=== PATIENT | female | born 1970 ===

== ENCOUNTER 2023-11-25 07:45 | Inpatient (IN) | payer OTHER ==
[~2023-11-25] VITALS: Ht 160 cm; Wt 78.5 kg
[2023-11-25] MEDS ORDERED: IRBESARTAN150 MG PO (09:41)
[2023-11-25] MEDS ORDERED: CARVEDILOL12.5 MG (09:41)
[2023-11-25] MEDS ORDERED: HYDROCHLOROTHIA25 MG PO (09:42)
[2023-11-25] MEDS ORDERED: METFORMIN HCL750 MG PO (09:42)
[2023-11-25] MEDS ORDERED: CRESTOR40 MG PO (09:43)
[2023-11-25 09:55] LABS: HEMATOCRIT 38.9 % (36.0-45.00); HEMOGLOBIN 13.1 g/dL (12.0-15.00); MEAN CELL VOLUME 92.1 fL (80.00-100.00); MEAN CORPUSCULAR HGB CONC 33.6 g/dl (32.0-36.0); PLATELET COUNT 287 K/uL (150-450); RED BLOOD COUNT 4.22 M/uL (4.00-6.00); RED CELL DISTRIBUTION WIDTH 14.8 % (11.5-14.5)
[2023-11-25 09:59] LABS: URINE APPEARANCE Clear; URINE BILIRRUBIN Negative (NEGATIVE); URINE BLOOD Negative; URINE COLOR Yellow; URINE GLUCOSE Negative (NEGATIVE); URINE LEUKOCYTE Trace; URINE NITRATE Negative; URINE PROTEIN Negative (NEGATIVE); URINE UROBILINOGEN 0.2 E.U./dl
[2023-11-25 10:01] LABS: URINE BACTERIA 188.8 uL (0.0-1933); URINE EPITHELIAL CELLS 11.2 uL (0.0-38.8); URINE RBC 9.9 uL (0.0-20.8); URINE WBC 11.2 uL (0.0-23.2)
[2023-11-25 10:22] LABS: INR 0.97; PROTHROMBIN TIME 10.2 SECONDS (9.0-11.5)
[2023-11-25 10:28] LABS: ALBUMIN 3.8 gm/dL (3.4-5.0); BILIRUBIN TOTAL 0.43 mg/dL (0.3-1.2); CALCIUM 9.4 mg/dL (8.5-10.1); CREATININE SERUM 0.67 mg/dL (0.55-1.02); GFR 91.72; GLOBULINA 3.5 G/DL (2.4-3.5); POTASSIUM 3.73 mEq/L (3.5-5.1); TOTAL PROTEIN 7.3 gm/dL (6.4-8.2)
[2023-12-01] MEDS ORDERED: CEFOXITIN SODIUM 2,000 MG VIAL IV ONE ×3 (07:34→09:45)
[2023-12-01] MEDS ORDERED: METRONIDAZOLE/SODIUM CHLORIDE 500 MG/100 ML PIGGYBACK IV ONE ×3 (07:34→09:45)
[2023-12-01] MEDS ORDERED: POVIDONE-IODINE 118 ML BOTT TOP ONE (08:43)
[2023-12-01] MEDS ORDERED: ROSUVASTATIN CA20 MG (09:19)
[2023-12-01] MEDS ORDERED: FAMOTIDINE/PF 20 MG/2 ML VIAL IV SCH (13:39)
[2023-12-01] MEDS ORDERED: PROMETHAZINE HCL 25 MG/ML AMPUL IM PRN (13:45)
[2023-12-01] MEDS ORDERED: RINGERS SOLUTION,LACTATED 1,000 ML IV SCH (13:45)
[2023-12-01] MEDS ORDERED: KETOROLAC TROMETHAMINE 30 MG VIAL IU PRN (13:45)
[2023-12-01] MEDS ORDERED: MEPERIDINE HCL/PF 50 MG/ML VIAL IM PRN (13:45)
[2023-12-01] MEDS ORDERED: FAMOTIDINE/PF 20 MG/2 ML VIAL ONE (14:56)
[2023-12-01] MEDS ORDERED: KETOROLAC TROMETHAMINE 30 MG VIAL ONE (16:10)
[2023-12-01] MEDS ORDERED: SIMETHICONE 125 MG CAPSULE PO SCH (18:00)
[2023-12-01 19:19] LABS: HEMATOCRIT 35.6 % (36.0-45.00); HEMOGLOBIN 12.1 g/dL (12.0-15.00); MEAN CELL VOLUME 92.9 fL (80.00-100.00); MEAN CORPUSCULAR HEMOGLOBIN 31.7 pg (27.00-32.0); MEAN CORPUSCULAR HGB CONC 34.1 g/dl (32.0-36.0); PLATELET COUNT 235 K/uL (150-450); RED BLOOD COUNT 3.84 M/uL (4.00-6.00); RED CELL DISTRIBUTION WIDTH 14.9 % (11.5-14.5)
[2023-12-02] MEDS ORDERED: ACETAMINOPHEN WITH CODEINE 1 UDTAB TABLET PO PRN (09:00)
[2023-12-02] MEDS ORDERED: IBUprofen 600 MG TABLET PO PRN (09:00)
[2023-12-02] MEDS ORDERED: DOCUSATE SODIUM 100MG CAP PO SCH (09:00)
[2023-12-02] MEDS ORDERED: FAMOtidine 20 MG TABLET PO SCH (09:00)
[2023-12-03] MEDS ORDERED: IBUPROFEN600 MG PO (06:22)
[2023-12-03] MEDS ORDERED: COLACE100 MG PO (06:22)
[2023-12-03] MEDS ORDERED: ACETAMINOPHEN-1 EAC2 PO (06:22)
== END 2023-12-03 09:18 | disposition home or self-care (01) | DRG 743 ==
LOC: OB/GYN 12-01 06:32 → O/R 12-01 06:32 → OB/GYN 12-01 07:00
PROVIDERS: ADMIT Obstetrics & Gynecology; ATTEND Obstetrics & Gynecology
PROC: 0JQC0ZZ Repair Pelvic Region Subcutaneous Tissue and Fascia, Open Approach (ICD-10-PCS; 2023-12-01)
PROC: 0USG0ZZ Reposition Vagina, Open Approach (ICD-10-PCS; 2023-12-01)
PROC: 0JQC0ZZ Repair Pelvic Region Subcutaneous Tissue and Fascia, Open Approach (ICD-10-PCS; 2023-12-01)
PROC: 0JQC0ZZ Repair Pelvic Region Subcutaneous Tissue and Fascia, Open Approach (ICD-10-PCS; 2023-12-01)
PROC: 0TJB8ZZ Inspection of Bladder, Via Natural or Artificial Opening Endoscopic (ICD-10-PCS; 2023-12-01)
PROC: 0UT97ZZ Resection of Uterus, Via Natural or Artificial Opening (ICD-10-PCS; principal; 2023-12-01 07:00)
DX: D25.1 Intramural leiomyoma of uterus (principal); D25.2 Subserosal leiomyoma of uterus; N80.03 Adenomyosis of the uterus; Z20.822 Contact with and (suspected) exposure to COVID-19